=== PATIENT | female | born 1985 | race Caucasian/White ===

== ENCOUNTER 2020-04-11 15:20 | Observation (INO) | payer OTHER, SELFPAY ==
--- NOTE | ~2020-04-11 | US_ITS ---
EXAMINATION: US OB follow up DATE: 04/11/2020 15:30 INDICATION: Routine care. Estimated gestational age of 39 weeks and 6 days. TECHNIQUE: Real-time ultrasound of the pelvis was performed. COMPARISON: None. FINDINGS: There is a single living fetus in vertex presentation. The placenta is fundal. heart rate is 1 33 beats per minute (bpm). The amniotic fluid index is 15.7 cm, which is normal. The following biometric data were obtained: Biparietal diameter (BPD): 9.0 cm; head circumference (HC): 31.9 cm; abdominal circumference (AC): 31 .4 cm; femur length (FL): 7.0 cm. These measurements are concordant. Estimated weight is 2731 g +/- 410 g, which correlates with <3rd percentile when 04/12/20 is us ed as estimated date of delivery. As single measurements, these parameters are each equal to the following estimated gestational ages: BPD: 36 weeks 3 days. HC: 36 weeks 0 days. AC: 35 weeks 2 days. FL: 35 weeks 5 days. estimated gestational age based solely on measurements from this exam is 35 weeks 6 days +/- 2 weeks 4 days. IMPRESSION: 1. Single living fetus in vertex presentation. 2. Small for gestational age. Estimated weight is 2731 g +/- 410 g, which correlates with <3rd percentile when 04/12/20 is used as estimated date of delivery. Reviewed, dictated and finalized at location A. IMPRESSION: 1. Single living fetus in vertex presentation. 2. Small for gestational age. Estimated weight is 2731 g +/- 410 g, whic h correlates with <3rd percentile when 04/12/20 is used as estimated date of de livery.
[2020-04-11 17:36] LABS: Basophils Percent Auto 0.3 % (0.2-1.2); Eosinophils Absolute Auto 0.2 K/mm3 (0-0.3); Eosinophils Percent Auto 2.5 % (0-4.4); Hematocrit 32.7 % (37.0-47.0); Hemoglobin 10.7 g/dL (12.0-15.0); Immature Granulocyte Absolute 0.04 K/mm3 (0.00-0.031); Immature Granulocyte Percent A 0.5 % (0-0.5); Lymphocytes Absolute Auto 2.26 K/mm3 (0.9-3.2); Lymphocytes Percent Auto 25.8 % (18.3-44.2); Mean Corpuscular HGB Conc 32.7 g/dl (32-36); Mean Corpuscular Hemoglobin 28.7 pg (26-34); Mean Corpuscular Volume 87.7 fl (80-100); Mean Platelet Volume 11.9 fl (7.4-10.4); Monocytes Absolute Auto 0.6 K/mm3 (0.1-0.6); Monocytes Percent Auto 6.5 % (2.6-8.5); Neutrophils Absolute Auto 5.6 K/mm3 (1.3-6.7); Neutrophils Percent Auto 64.4 % (45.5-73.1); Platelet Count Result 217 k/mm3 (150-375); Red Blood Count 3.73 M/mm3 (4.2-5.4); Red Cell Distribution Width 13.1 % (11.5-14.5); White Blood Count 8.8 K/mm3 (4.5-10.0)
--- NOTE | 2020-04-11 17:59 | OBADM ---
This patient, Rosi Hernández, admitted to the OB room Labor/Delivery/Recovery 119 for observation. Patient/family oriented to hospital policies and general routines including ID bracelet, bed and alarms, visiting hours, pain management, procedures, bathroom and other care routines, personal items, smoking policy, room service/diet, and visiting hours. Patient/Family are encouraged to report perceived risks to care and to ask questions if they do not understand what they are told or what they should do.
--- NOTE | 2020-04-11 18:21 | PC.NURSE ---
4835- on the unit, reviewed strip. Orders received to draw pre-op labs. Informed SVE is closed and thick.
--- NOTE | 2020-04-11 18:50 | PM.OBTRLD ---
OB - Triage/Final Diagnosis Visit Information Reason for evaluation: threatened labor Evaluation Baseline heart rate: 144 Variability: Average (6-10) monitor accelerations: Present monitor decelerations: None Cervical dilation (cm): 0 Cervical effacement (%): 50 station: -3 Laboratory results: Laboratory Tests 04/11/20 04/11/20 17:28 17:28 WBC 8.8 RBC 3.73 L Hgb 10.7 L Hct 32.7 L MCV 87.7 MCH 28.7 MCHC 32.7 RDW 13.1 Plt Count 217 MPV 11.9 H Immature Gran % (Auto) 0.5 Neut % (Auto) 64.4 Lymph % (Auto) 25.8 Walton % (Auto) 6.5 Eos % (Auto) 2.5 Baso % (Auto) 0.3 Lymph # (Auto) 2.26 Walton # (Auto) 0.6 Eos # (Auto) 0.2 Baso # (Auto) 0.0 Abs Immat Gran (auto) 0.04 H Absolute Neuts (auto) 5.6 Absolute Nucleated RBC 0.0 Nucleated RBC % 0.0 Blood Type O Positive Antibody Screen Negative Final Diagnosis (1) False labor: Code(s): O47.9 - False labor, unspecified Status: Acute (2) Delivery by section: Status: Acute (3) Term : Code(s): Z34.90 - Encounter for supervision of normal , unspecified, unspecified trimester Status: Acute
[2020-04-12 11:16] LABS: Rapid Plasma Reagin Non-Reactive (NonReactive)
== END 2020-04-11 17:22 | disposition home or self-care (01) ==
LOC: ANHLDR 17:06
PROVIDERS: Admitting Provider Obstetrics & Gynecology; Visit Provider Obstetrics & Gynecology
DX: O47.03 False labor before 37 completed weeks of gestation, third trimester (principal); Z3A.38 38 weeks gestation of pregnancy
CPT/HCPCS: 36415; 76816; 85025; 86592; 86850; 86900; 86901; G0378; G0379

== ENCOUNTER 2020-04-13 05:46 | Inpatient (IN) | payer OTHER, SELFPAY ==
--- NOTE | 2020-04-11 16:13 | WPDANESEPPF ---
Anes - Initial Pre Proc Eval Procedure: Operation Date: 04/13/20 10:30 Proposed Procedures p Repeat Low Transverse Section - Oscar Gil MD Date/Time: 04/11/20 16:13 Surgeon: Oscar Gil MD Pre Op Diagnosis: LABOR Patient Data Age: 34 Gender: F Height: Weight: Allergies Allergy/AdvReac Type Severity Reaction Status Date / Time No Known Allergies Allergy Verified 06/02/19 09:12 Home Medications Medication Instructions Recorded Confirmed Type PNV cmb#95-ferrous fumarate-FA 1 tablet PO DAILY 03/19/20 03/19/20 History [] levalbuterol tartrate 2 inh INHALATION Q6H 03/19/20 03/19/20 History Patient hx anesthesia problems: none Family hx anesthesia problems: none PMFSH Past Medical History Medical History (Updated 04/11/20 @ 16:14 by Jamaal Lee MD) No significant past medical history Surgical History Surgical History (Updated 04/11/20 @ 16:14 by Jamaal Lee MD) History of section No significant past surgical history Family History Family History Mother Hypertension Social History Social History Smoking status: Never smoker Substance use: never Gender identity (if verbalized by the patient): Female Spiritual care concerns: No Anes - Eval Final PreProcedure Day of Procedure 04/11/20 16:13 Patient weight: normal Heart: regular rate and rhythm Lungs: clear to auscultation Airway: Mallampati scale class II Neurological: alert and oriented Last oral intake: >/= 8 hours ASA classification: II Emergent: no Anesthetic plan: proceed Anesthesia type and monitoring: regional spinal and standard monitoring Informed Consent: The patient's anesthetic plan and its attendant risks and benefits were discussed with the patient/family/POA. Questions were solicited and answers provided to the satisfaction of the patient/family/POA.
--- NOTE | 2020-04-12 18:44 | PM.IMHP ---
H&P: HPI History of Present Illness Date/Time: 04/13/20 06:44 Chief complaint: LABOR Narrative: Rosi Hernández is a 34 year old female, , presents today for Repeat c section at 39weeks . PMHx of deliveries, miscarriage, LEVON, asthma, HSV, MTHFR. Review of Systems Review of Systems: All systems reviewed & are unremarkable except as noted in HPI and below Constitutional: Constitutional: Reports no additional constitutional complaints Eyes: Eyes: Reports no additional eye complaints ENT: Reports system reviewed and no additional complaints, except as documented Cardiovascular: Cardiovascular: Reports no additional cardiovascular complaints Respiratory: Respiratory: Reports no additional respiratory complaints Gastrointestinal: Gastrointestinal: Reports no additional gastrointestinal complaints Genitourinary: Genitourinary: Reports no additional female genitourinary complaints Musculoskeletal: Musculoskeletal: Reports no additional musculoskeletal complaints Integumentary/Breasts: Skin/Breast: Reports system reviewed and no additional complaints, except as docu Neurologic: Reports system reviewed and no additional complaints, except as documented Psychiatric: Psychiatric: Reports no additional psychiatric complaints Endocrine: Endocrine: Reports no additional endocrine complaints Hematologic/Lymphatic: Hematologic/Lymphatic: Reports no additional hematologic/lymphatic complaints Allergic/Immunologic: Allergic/Immunologic: Reports no additional allergic/immunologic complaints [facility] Past Medical History Medical History Asthma LEVON (generalized anxiety disorder) 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 History of miscarriage HSV (herpes simplex virus) infection No significant past medical history Surgical History Surgical History Delivery by section History of section No significant past surgical history Family History Family History Mother Hypertension Social History Social History Smoking status: Never smoker Second hand tobacco smoke exposure: No Alcohol intake: never Substance use: never Substance use type: does not use Living arrangements: with family Occupation/Education: unemployed Gender identity (if verbalized by the patient): Female Sexual Orientation (if Verbalized by the Patient): Straight or Heterosexual Spiritual care concerns: No Agree to blood products: Yes Meds Home Medications and Allergies Home Medications Medication Instructions Recorded Confirmed Type PNV cmb#95-ferrous fumarate-FA 1 tablet PO DAILY 03/19/20 03/19/20 History [] levalbuterol tartrate 2 inh INHALATION Q6H 03/19/20 03/19/20 History Allergies Allergy/AdvReac Type Severity Reaction Status Date / Time No Known Allergies Allergy Verified 06/02/19 09:12 Exam Const: General: cooperative, healthy appearing, comfortable, no acute distress, well developed, alert, awake and Physically active Nutritional Appearance: average body habitus and well nourished Orientation/consciousness: patient oriented x3 Limitations: no limitations HENMT: Head: normal to inspection Ears: hearing grossly normal bilaterally General nose exam: Normal external nose present and Normal nares present Face and sinus: normal facial exam Mouth: Yes Normal oral and palatal mucosa present, Yes lip normal, Yes tongue normal, Yes Normal salivary glands and ducts present, Yes oropharynx normal and Yes moist mucous membranes Teeth and gingiva: dentition normal Throat: posterior oropharynx normal Eyes: General: appearance normal, both eyes and all related structures Visual Valenzuela: normal visual valenzuela by confrontation Alignment and Position: alignm
--- NOTE | 2020-04-12 19:17 | WPDHPUPDATE1 ---
History and Physical Update Update Date/Time: 04/13/20 06:17 History and Physical has been reviewed, including an updated exam of the patient. There are NO changes in the patient's condition. Risks, benefits, and alternatives have been discussed and questions answered. Patient agrees to proceed with procedure. 34yo F, , presents today for Repeat LTCS at 39w. PMHx of deliveries, miscarriage, LEVON, asthma, HSV, MTHFR.
--- NOTE | 2020-04-12 19:19 | WPDOBADMIT ---
Obstetrics - Admit Note Admission Note: record reviewed. No pertinent additions to the history and/or any subsequent changes in the physical findings that are not consistent with the expected course of the were found. Additions to the history and/or subsequent changes in the physical findings follow. N34yo F, , presents today for Repeat LTCS at 39weeks. PMHx of deliveries, miscarriage, LEVON, asthma, HSV, MTHFR.one.
[2020-04-13] VITALS (66 sets, daily range): BP systolic 93–125; BP diastolic 49–84; PULSE 51–104; RESP 12–18; TEMP 36.1–37; O2SAT 96–100; BMI 31.4
--- OUTSIDE RECORDS SUMMARY | 2020-04-13 05:52 | XMS_ITS | Encounter Summary ---
:1985 Author Care Team Providers Name Role Phone Oscar Gil MD Elevated Motorman [phone] Reason for Visit ob routine visit Assessment and Plan 1. Routine care ? urinalysis, dipstick 2. 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 cyanocobalamin (vit B-12) 1,000 mcg/mL injection solution 3. Deliveries by Team discussed with patient on her actual due date of 04/19/2020. Patient stated her discrepancies. Discussion Note: None recorded.Patient educational handouts: No information available. Plan of Care Reminders Provider Appointments on or around [place] alfreda Gil, 15 05/02/2020 Lab Urinalysis, 02/15/2020 In-Of fice Order Dipstick Referral None ? ? recorded. Procedures None ? ? recorded. Surgeries None ? ? recorded. Imaging None ? ? recorded. Medications Name Start Date ? ? acyclovir 800 mg tablet ? Take 1 tablet every day by oral route. One pill a day keeps the virus away albuterol sulfate HFA 90 mcg/actuation aerosol inhaler ? Inhale 2 puffs every 4 hours by inhalation route as n eeded. Aspirin Low Dose 81 mg tablet,delayed release ? Take 1 tablet twice a day by oral route. Calcium 600 with Vitamin D3 600 mg
--- OUTSIDE RECORDS SUMMARY | 2020-04-13 05:52 | XMS_ITS | Encounter Summary ---
:1985 Author Care Team Providers Name Role Phone Oscar Gil MD Milk Wagon Driver [phone] Reason for Visit ob routine visit been having multiple times where she has loss of consciousness and claims that it has happened 3 times this past month. been also extremely dizzy as well Assessment and Plan 1. Routine care ? urinalysis, dipstick ? US, obstetric, [address] [place] [address] er - STAT 2. Deliveries by Team discussed with patient on her actual due date of 04/19/2020. Patient stated her discrepancies. 3. Generalized anxiety disorder ? anxiety disorder: care ins tructions 4. 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 Genital herpes simplex ? genital herpes: care instr uctions Discussion Note: None recorded. Plan of Care Reminders Provider Appointments on or around Gina Gil, 15 05/02/2020 Lab Urinalysis, 04/11/2020 In-Of fice Order Dipstick Referral None ? ? recorded. Procedures None ? ? recorded. Surgeries None ? ? recorded. Imaging US, 04/11/2020 [facility], [address] [place] [address] (Priya hines) Trimester Medications Name Start Date ? ?
--- OUTSIDE RECORDS SUMMARY | 2020-04-13 05:52 | XMS_ITS | Encounter Summary ---
:1985 Author Care Team Providers Name Role Phone Oscar Gil MD Railway Switch Operator [phone] Reason for Visit ob routine visit Assessment and Plan 1. Routine care VIRGIL at 33 weeks 4 days. Pregna ncy c/b deliveries, LEVON, asthma, HSV, MTHFR. Pt endorses irregular contra ctions and movement, denies LOF. Reassuring fundal height and FHT present at 156. US 02/14 with EFW 22% and RM wnl. RTC in 2 weeks. ? urinalysis, dipstick 2. 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 Counseled pt on results. Start ASA and folic acid as prescribed. Last B 12 injection given 02/14. 3. Deliveries by Plan for repeat , jessica eduled 04/13. 4. Generalized anxiety disorder Excessive worry over emergenc y possibility. Reassurance. Recommend counseling. Discussion Note: None recorded.Patient educational handouts: No information available. Plan of Care Reminders Provider Appointments on or around Gina Gil, 15 05/02/2020 Lab Urinalysis, 03/05/2020 In-Of fice Order Dipstick Referral None ? ? recorded. Procedures None ? ? recorded. Surgeries None ? ? recorded. Imaging None ? ? recorded. Medications Name
--- OUTSIDE RECORDS SUMMARY | 2020-04-13 05:52 | XMS_ITS ---
:1985 Author Care Team Providers Name Role Phone SAADIA SCHULTE MD Candy Cooker Helper [phone] Allergies Code Code System Name Reaction Severity Status Onset NKDA ? Medications Name Status Start Date Stop Date ? ? acyclovir 800 mg tablet Active ? Not avai lable Take 1 tablet every day by oral route. One pill a day keeps the virus away Advair Diskus 250 mcg-50 mcg/dose powder for inhalation Complete d ? 02/03/2020 Inhale 2 puffs twice a day by inhalation route. albuterol sulfate HFA 90 mcg/actuation Active ? Not available aerosol inhaler Aspirin Low Dose 81 mg tablet,delayed release Active ? Not available Take 1 tablet twice a day by oral route. Calcium 600 with Vitamin D3 600 mg (1,500 mg)-400 unit capsule A ctive ? Not available Take 1 capsule twice a day by oral route. cephalexin 500 mg capsule Completed ? 2019 cetirizine 10 mg tablet Active ? Not avai lable Take 1 tablet every day by oral route. cyanocobalamin (vit B-12) 1,000 mcg/mL injection solution Active ? Not available Inject 1 mL every month by subcutaneous route. diazepam 10 mg tablet Completed ? 03/05/2020 Flovent HFA 44 mcg/actuation aerosol Active ? Not available inhaler fluconazole 150 mg tablet Completed ? 2019 folic acid 1 mg tablet Active ? Not avail able Take 2 tablets twice a day by oral route. ibuprofen 600 mg tablet Completed ? 03/05/20 20 ibuprofen 800 mg tablet Completed ? 03/05/20 20 metronidazole 500 mg tablet Compl
--- OUTSIDE RECORDS SUMMARY | 2020-04-13 05:52 | XMS_ITS | Encounter Summary ---
:1985 Author Care Team Providers Name Role Phone Oscar Gil MD Addictions Counselor [phone] Reason for Visit ob routine visit patient complaining of swelling in legs and feet Assessment and Plan 1. Routine care ? Boostrix Tdap 2.5 Lf unit- 8 mcg-5 Lf/0.5 mL intramuscular syringe ? US, obstetric, 3rd trimest er ? counting your baby's kicks : care instructions ? kick counts ? CBC - In addition to our o ffice, please fax results to [facility] at [phone] ? treponema pallidum screen, serum, reflex confirmation - In addition to our office, please fax results to [facility] at [phone] ? HBsAg (hepatitis B surface Ag), EIA, serum - In addition to our office, please fax results to [facility] at [phone] ? HIV 1+2 AB + HIV 1 p24 Ag, qualitative immunoassay, serum - In addition to our office, please fax results to [facility] at [phone] ? urinalysis, dipstick 2. screening ? glucose tolerance test, po st-50G, 1-hour - In addition to our office, please fax results to [facility] at [phone] 3. Deliveries by 4. History of miscarriage 5. 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 cyanocobalamin (vit B-12) 1,000 mcg/mL injection solution Discussion Not
--- OUTSIDE RECORDS SUMMARY | 2020-04-13 05:52 | XMS_ITS | Encounter Summary ---
:1985 Author Care Team Providers Name Role Phone Oscar Gil MD Talent Acquisition Project Manager [phone] Reason for Visit ob routine visit Assessment and Plan 1. Routine care ? urinalysis, dipstick ? Zithromax Z-Cal 250 mg tab let ? Singulair 10 mg tablet ? Advair Diskus 250 mcg-50 m cg/dose powder for inhalation ? cetirizine 10 mg tablet 2. screening 3. Genital herpes simplex ? genital herpes: care instr uctions 4. 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 Third trimester ? US, obstetric, 3rd trimest er 6. Asthma ? controlling your asthma: c are instructions ? learning about asthma Discussion Note: None recorded. Plan of Care Reminders Provider Appointments on or around [place] alfreda Gil MD 15 05/02/2020 Lab Urinalysis, 02/02/2020 In-Of fice Order Dipstick Referral None ? ? recorded. Procedures None ? ? recorded. Surgeries None ? ? recorded. Imaging US, 02/02/2020 [facility] Trimester Medications
[2020-04-13] MEDS: LACTATED RINGERS 1,000 ML 125 ML IV CONT ×2 (06:31→08:15)
--- NOTE | 2020-04-13 06:47 | ECG_ITS ---
Measurements Intervals [place] Rate: 84 P: 62 SD: 118 QRS: 45 QRSD: 70 T: 35 QT: 422 QTc: 500 Interpretive Statements SINUS RHYTHM WITH SHORT SD INTERVAL BASELINE WANDER- V3 BORDERLINE ECG Electronically Signed On 04-13-2020 7:07:19 CDT by Onesimo Birch D.O.
--- NOTE | 2020-04-13 07:06 | P.PCNOB_ITS ---
OB - Delivery Note Procedure Delivery date: 04/13/20 Procedure: Procedures Operation Date: 04/13/20 07:30 repeat low-transverse section with delivery of viable male and placenta removal of old scar with Kenalog injection to prevent keloid formation events: Previous Induction method: none Delivery monitor: external FHT and external uterine Route of delivery: Episiotomy description: None Laceration Description: None Specimen: Yes ( placenta, cord blood, cord blood gases) Estimated blood loss (mL): 310 Anesthesia type: Spinal Disposition: floor Complications: none Baby Date of : 04/13/20 Time of : 07:53 Weeks of gestation at delivery: 39 Infant gender: Male ( ) Weight (pounds): 7 Weight (ounces): 0 presentation: vertex position: Left Occiput Transverse Placenta delivery description: Manual Removal and Normal Configuration cord vessel description: 3 Vessels score one minute: 8 score five minutes: 9 Narrative: baby's name is Cristobal mom is baby will be circumcised certified professional coder [facility]
--- NOTE | 2020-04-13 07:07 | PM.PROC ---
Procedure Note - Detailed Date of procedure: 04/13/20 Pre-op diagnosis: Section term Previous section desires repeat section Asthma Heterozygous MTHFR mutation HSV Generalized anxiety disorder Post-op diagnosis: same ( delivered viable male and placenta) Procedure performed: repeat low transverse section with delivery of viable male infant and placenta Excision of old scar injection of Kenalog to prevent keloid formation Description of procedure: informed consent obtained preop evaluation by Anesthesia completed patient taken to the operating room where spinal anesthetic was administered in the sitting position the patient was placed supine and a Hightower catheter was inserted and then her abdomen was prepped and then draped in the usual sterile fashion. A time-out was then performed and testing for adequate pain relief was confirmed with Allis clamp The old scar was excised using sharp blade and then electrocautery used to remove old scar tissue and hemostasis in the subcutaneous tissues the fascia was entered with electrocautery bilaterally and then undermined superior and inferior. The rectus muscles were in the midline and the peritoneum was entered with electrocautery. The vesicouterine peritoneal reflection was incised transversely and the bladder reflected inferior. A transverse incision was then made to the uterus and extended bilaterally with Peon clamp and digital dissection clear fluid was obtained. The vertex was then delivered via the abdominal incision with the nose throat bulb suction the cord was clamped and cut the was handed to the nursery nurse in attendance spontaneous respirations and cry normal transition taken to the nursery in stable condition scores 8 and 9 weight 7 lb 0 oz 19-1/2 inches long. Cord segment for cord gases was obtained cord blood was obtained and then the placenta was delivered intact with a three-vessel cord the uterus was externalized blood clots membranes removed from the intrauterine cavity the uterus contracted well with Pitocin given intravenously and 10 units into the myometrium. The uterine incision was then repaired in 2 layers with 0 Vicryl in a running interlocking fashion the 2nd being an imbricating stitch in a running fashion. Irrigation was performed uterus was returned to the peritoneal cavity sponge needle instrument counts correct the anterior peritoneum was anterior peritoneum and rectus muscles were reapproximated with 0 Vicryl suture in a running fashion. The fascia was then closed with 2. Quill in which is the S RS system bilaterally and then the Elaine's fascia was freed up using electric cautery and Elaine's fascia was then reapproximated with 3 0 plain interrupted fashion. The Kenalog injection was then placed into the subcutaneous space anterior and inferior incision. The insorb system which is the absorbable dian under the skin was utilized following this Dermaflex was used on the skin and then Mepilex Aquacel dressing was placed over the incision. The patient was taken to the recovery room in stable condition Anesthesia: spinal Surgeon: Oscar Gil MD Card Services Specialist: surgical aide x2 Estimated blood loss (mL): 310 IV fluids (mL): 2,000 Urine output (mL): 200 Drains: No ( Hightower) Packing: No Pathology: yes ( cord blood gases cord blood and placenta) Complications: None Condition: stable Disposition: floor Findings: viable male delivered at 7:53 a.m. named Cristobal with spontaneous respirations and cry no observed abnormalities on the exam taken to the nursery in stable condition scores 8 and 9 at 1 and 5 minutes weighing 7 lb 0 oz 3180 g 19-1/2 inches long Placenta intact three-vessel cord uterus tubes ovaries normal Bladder normal Upper abdomen normal Counts correct Complications none OR 2. Antibiotic Ancef 2 g VTE prevention SCDs Taken to recover room in stable co
--- NOTE | 2020-04-13 07:17 | WPDANESEFPP ---
Anes - Eval Final PreProcedure Day of Procedure 04/13/20 07:17 Patient weight: obese Heart: regular rate and rhythm (few missed beats palpated and ascultated - EKG ordered) Lungs: clear to auscultation (no wheezes or abnormalities ascultated in all lung valenzuela A and P) Airway: Mallampati scale class II Neurological: alert and oriented Last oral intake: >/= 8 hours ASA classification: II Emergent: no Anesthetic plan: proceed Anesthesia type and monitoring: regional spinal and standard monitoring Other findings: EKG NSR with short MT Informed Consent: The patient's anesthetic plan discussed at length including absolutely no blood to be given even if is possible. This discussion witnessed by RN and family. Attendant risks and benefits were discussed with the patient/family/POA. Questions were solicited and answers provided to the satisfaction of the patient/family/POA.
[2020-04-13] MEDS: ceFAZolin 2 GM/D5W 50 ML 2 GM/50 ML BAG IVPB (07:40)
[2020-04-13] MEDS: OXYTOCIN 10 UNITS/ML VIAL IM (07:55)
[2020-04-13] MEDS: TRIAMCINOLONE ACET INJ 40 MG/ML VIAL 160 MG IM (08:57)
[2020-04-13] MEDS: fentaNYL CITRATE INJ (*CRX) 100 MCG/2 ML VIAL 25 MCG IV PUSH ×3 (09:23→09:47)
[2020-04-13] MEDS: KETOROLAC 30 MG/ML VIAL (*BKC) IV PUSH ×3 (10:05→22:30)
[2020-04-13] MEDS: OXYTOCIN 30 UNITS/NS 500 ML 30 UNITS/500 ML BAG 125 UNITS IV CONT (11:04)
[2020-04-13] MEDS: HYDROcodone/acetaminophen (*CRX) 10-325 MG TABLET 1 TAB PO ×4 (12:40→23:50)
--- NOTE | 2020-04-13 14:45 | PC.NURSE ---
Mother called out for observation of feeding, mother breastfed other children now 12 & 14. Mother reports infant is sleepy. Demonstrated stimulation techniques to wake for feeding. Reviewed infant feeding cues, frequencies, duration of feedings, feeding elimination flow sheet, and signs of adequate intake. Assisted with to breast. Observed mother is able to independently latch infant with appropriate positioning/alignment. Reviewed positioning/alignment in cross cradle, holding breast in U hold and guided asymmetrical latch on. Discussed the rational for each. was able to latch correctly. Infant nursed eagerly, with steady draws and [frequent/occasional] swallowing noted. Reviewed signs of a correct latch, effective nursing and suck swallow ratio. Infant was able to maintain latch without discomfort to mother. Nipple care reviewed. Suggested to stimulate while feeding to keep nursing effectively for increased intake and to assist with maintaining deep latch. Demonstrated how to adjust latch more deeply while feeding. Instructed mother to call out for RN assistance if she is unable to latch infant for feeding or she has discomfort with nursing. Instructed feeding should be initiated three hours from start of last feeding or if feeding cues are noted before. Mother voiced understanding of information shared.
[2020-04-14 00:17] VITALS: BP 115/52; PULSE 53; PULSE 65; RESP 16; TEMP 36.3; O2SAT 100
--- NOTE | 2020-04-14 03:05 | PM.OBPNVD ---
OB - PN: Subj Subjective Date/time seen: 04/14/20 08:05 postop day 1. 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 - Methylenetetrahydrofolate reductase deficiency Status: Acute (4) History of miscarriage: Code(s): Z87.59 - Personal history of other complications of , childbirth and the puerperium Status: Acute (5) HSV (herpes simplex virus) infection: Code(s): B00.9 - Herpesviral infection, unspecified Status: Acute (6) Asthma: Code(s): J45.909 - Unspecified asthma, uncomplicated Status: Acute (7) LEVON (generalized anxiety disorder): Code(s): F41.1 - Generalized anxiety disorder Status: Acute Time Spent With Patient Time: Total time spent is greater than 50% in coordination of care (as documented) at patient's floor/unit and/or counseling patient: Review of Systems Review of Systems: All systems reviewed & are unremarkable except as noted in HPI and below Constitutional: Constitutional: Reports no additional constitutional complaints Eyes: Eyes: Reports no additional eye complaints ENT: Reports system reviewed and no additional complaints, except as documented Cardiovascular: Cardiovascular: Reports no additional cardiovascular complaints Respiratory: Respiratory: Reports no additional respiratory complaints Gastrointestinal: Gastrointestinal: Reports no additional gastrointestinal complaints Genitourinary: Genitourinary: Reports no additional female genitourinary complaints Musculoskeletal: Musculoskeletal: Reports no additional musculoskeletal complaints Integumentary/Breasts: Skin/Breast: Reports system reviewed and no additional complaints, except as docu Neurologic: Reports system reviewed and no additional complaints, except as documented Psychiatric: Psychiatric: Reports no additional psychiatric complaints Endocrine: Endocrine: Reports no additional endocrine complaints Hematologic/Lymphatic: Hematologic/Lymphatic: Reports no additional hematologic/lymphatic complaints Allergic/Immunologic: Allergic/Immunologic: Reports no additional allergic/immunologic complaints Exam Const: General: cooperative, healthy appearing, comfortable, no acute distress, well developed, alert, awake and Physically active Nutritional Appearance: average body habitus Orientation/consciousness: patient oriented x3 Limitations: no limitations HENMT: Head: normal to inspection Eyes: General: appearance normal, both eyes and all related structures Neck: Neck: normal visual inspection and full ROM Chest: Chest palpation & inspection: normal inspection of the chest Breast/axilla inspection: normal inspection of the breasts Breast/axilla palpation: normal palpation of the breasts Resp: Effort & Inspection: normal respiratory effort Auscultation: clear to auscultation bilaterally Cardio: Rate: regular rate Rhythm: regular rhythm Heart sounds: S1 normal heart sound present and S2 normal heart sound present GI: Inspection: normal to inspection and incision ( clean dry and intact) GI Palp: Yes Soft to palpation Percussion: Yes normal to percussion Auscultation: normal bowel sounds : External Female Exam: normal external appearance Urinary Catheter: Urinary Catheter: patent and draining and urine clear Back/Spine/Pelvis: Back: no CVA tenderness Skin: General skin exam: normal color and no rashes or lesions noted Neuro: General: patient oriented x3, gait normal, tone normal, moves all extremities, Normal light touch and pain sensation, no meningeal signs, no focal motor deficits and CN's II-XI intact bilaterally Extrem: General: normal to inspection and full ROM Psych: Appearance: grossly normal Mental Status: mental stat
[2020-04-14 04:00] VITALS: BP 115/70; PULSE 58; RESP 16; TEMP 36.7; O2SAT 100
[2020-04-14] MEDS: IBUPROFEN 600 MG TABLET PO ×3 (04:53→19:46)
[2020-04-14] MEDS: HYDROcodone/acetaminophen (*CRX) 10-325 MG TABLET 1 TAB PO ×5 (04:53→19:45)
--- NOTE | 2020-04-14 05:31 | PC.NURSE ---
Pt refused blood draw this morning.
[2020-04-14 07:38] VITALS: BP 109/63; PULSE 53; RESP 16; TEMP 36.7; O2SAT 100
[2020-04-14] MEDS: MULTIVIT/MIN/PREN/FOL AC/IRON TABLET 1 TAB PO (07:40)
[2020-04-14] MEDS: DOCUSATE SODIUM 100 MG CAPSULE PO ×2 (07:41→16:25)
--- NOTE | 2020-04-14 09:45 | WPDANLDNPN2 ---
Anes-Prog Note L&D-Neuraxial Date/Time: 04/14/20 09:45 Neuraxial medications: intrathecal PF morphine Opiod-related complaints: none Patient feedback: Patient satisfied with post-operative pain management.
--- NOTE | 2020-04-14 09:45 | WPDANLDPN2 ---
Anes-Prog Note L&D Date/Time: 04/14/20 09:45 Comfortable throughout: section Neuraxial method: spinal Epidural/Spinal procedure site: clean & non-tender Neuro status: Neuro function grossly intact. Cardiovascular status: normal Respiratory status: normal Airway patency: baseline Mental status: baseline Post-Op hydration status: normal Vital Signs: Last Vital Signs Temp 36.7 C 04/14/20 07:38 Pulse 53 L 04/14/20 07:38 Resp 16 04/14/20 07:38 BP 109/63 04/14/20 07:38 Pulse Ox 100 04/14/20 07:38 Pain score (VAS): 0/0 I/O: Intake & Output 04/13/20 04/14/20 04/14/20 23:59 07:59 15:59 Intake Total 3000 Output Total 2500 Balance 500 Post-procedural complaints: none Patient feedback: Patient satisfied with anesthetic care.
[2020-04-14 19:00] VITALS: BP 110/57; PULSE 52; RESP 14; TEMP 36.7; O2SAT 99
[2020-04-15] MEDS: HYDROcodone/acetaminophen (*CRX) 10-325 MG TABLET 1 TAB PO ×5 (00:57→14:21)
--- NOTE | 2020-04-15 01:09 | PC.NURSE ---
Daylight Savings Time For Daylight Savings Time Ending in the Fall - Clocks are moved back. For Daylight Savings Time Beginning in the Spring - Clocks are moved ahead. For [facility], the time of change occurs at 0200 hrs. Time is taken from the electrical prospecting observer. This entry on the patient's chart recognizes the change in time reflected during documentation. Example: 2 entries for vital signs may be charted for 0200 hrs.
[2020-04-15] MEDS: IBUPROFEN 600 MG TABLET PO ×2 (04:18→10:51)
--- NOTE | 2020-04-15 04:36 | PM.OBDSVD ---
DS: Admitting Diagnosis Admitting Diagnosis Admitting Diagnosis: term previous section desires repeat Section asthma Generalized anxiety disorder Heterozygous MTHFR mutation HSV History of miscarriage DS: Discharge Diagnosis Discharge Diagnosis (1) Term delivered: Code(s): O80 - Encounter for full-term uncomplicated delivery Status: Acute (2) Delivery by section: Status: Acute (3) Heterozygous MTHFR mutation [id number]: Code(s): E72.12 - Methylenetetrahydrofolate reductase deficiency Status: Acute (4) HSV (herpes simplex virus) infection: Code(s): B00.9 - Herpesviral infection, unspecified Status: Acute (5) Asthma: Code(s): J45.909 - Unspecified asthma, uncomplicated Status: Acute (6) LEVON (generalized anxiety disorder): Code(s): F41.1 - Generalized anxiety disorder Status: Acute OB - DS: Summary Hospital Course Time spent discussing smoking cessation with patient: 3 to 10 minutes OB Procedures : Ultrasound OB Procedures Intrapartum: ( repeat) low cervical, transverse OB Procedures: : None Peripartum Data Infant Delivery Method: Section ( repeat low transverse) Laceration description: None Episiotomy description: None Procedures: Procedures Operation Date: 04/13/20 07:30 repeat low transverse section with delivery of viable male infant and placenta Excision of old scar with placement of Kenalog to prevent keloid formation in scar complications: none [place] 1: Gender: Male (Cristobal) Disposition of : home ( circumcision performed) Status at Discharge Functional status at discharge: independent ambulation Overall status at discharge: patient is back to baseline Time Spent with Patient Time attestation: Total time spent providing and/or coordinating discharge services: Time spent: Less than 30 minutes Exam Const: General: cooperative, healthy appearing, comfortable, no acute distress, well developed, alert, awake and Physically active Nutritional Appearance: average body habitus and well nourished Orientation/consciousness: oriented to person Limitations: no limitations HENMT: Head: normal to inspection Ears: hearing grossly normal bilaterally General nose exam: Normal external nose present Face and sinus: normal facial exam Mouth: Yes Normal oral and palatal mucosa present Teeth and gingiva: dentition normal Throat: posterior oropharynx normal Eyes: General: appearance normal, both eyes and all related structures Pupils: Equal, round and reactive pupils present Neck: Neck: normal visual inspection and full ROM Chest: Chest palpation & inspection: normal inspection of the chest Breast/axilla inspection: normal inspection of the breasts Breast/axilla palpation: normal palpation of the breasts Resp: Effort & Inspection: normal respiratory effort Auscultation: clear to auscultation bilaterally Percussion: percussion normal Cardio: Jugular venous distension: no JVD Palpation: normal PMI Rate: regular rate Rhythm: regular rhythm GI: Inspection: normal to inspection and incision ( clean dry and intact dressing) GI Palp: Yes Soft to palpation and Yes Firmness to palpation present (GI) ( uterus) Percussion: Yes normal to percussion Auscultation: normal bowel sounds : External Female Exam: normal external appearance Back/Spine/Pelvis: Back: no CVA tenderness Skin: General skin exam: normal color and no rashes or lesions noted Neuro: General: patient oriented x3, gait normal, tone normal, moves all extremities, Normal light touch and pain sensation, no meningeal signs and CN's II-XI intact bilaterally Cognition (Neuro): normal cognition Speech: normal speech Gait exam (Neuro): Normal gait present Motor exam (neuro): 5/5 motor strength present throughout Sensory Exam: normal sensation Extrem: General
[2020-04-15 07:43] VITALS: BP 113/57; PULSE 53; RESP 16; TEMP 36.7; O2SAT 98
[2020-04-15] MEDS: MULTIVIT/MIN/PREN/FOL AC/IRON TABLET 1 TAB PO (07:43)
[2020-04-15] MEDS: SIMETHICONE 80 MG TAB.CHEW PO (07:43)
[2020-04-15] MEDS: DOCUSATE SODIUM 100 MG CAPSULE PO (07:43)
--- NOTE | 2020-04-15 08:55 | P.PNOB_ITS ---
OB - PN: Subj Subjective Date/time seen: 04/15/20 08:55 Interval history: pod#2 Patient comments: no complaints, pain well controlled, incisional pain, tolerating diet and flatus present [place] baby status: doing well [place] feeding status: exclusively breast feeding OB - PN A/P Assessment and Plan (1) Term delivered: Code(s): O80 - Encounter for full-term uncomplicated delivery Status: Acute (2) Heterozygous MTHFR mutation [id number]: Code(s): E72.12 - Methylenetetrahydrofolate reductase deficiency Status: Acute (3) HSV (herpes simplex virus) infection: Code(s): B00.9 - Herpesviral infection, unspecified Status: Acute (4) Asthma: Code(s): J45.909 - Unspecified asthma, uncomplicated Status: Acute (5) LEVON (generalized anxiety disorder): Code(s): F41.1 - Generalized anxiety disorder Status: Acute (6) Delivery by section: Status: Acute Time Spent With Patient Time: Total time spent is greater than 50% in coordination of care (as documented) at patient's floor/unit and/or counseling patient: Review of Systems Review of Systems: All systems reviewed & are unremarkable except as noted in HPI and below Exam Const: General: cooperative, healthy appearing, comfortable, no acute distress, well developed, alert, awake and Physically active Nutritional Appearance: average body habitus Limitations: no limitations HENMT: Head: normal to inspection Eyes: General: appearance normal, both eyes and all related structures Neck: Neck: normal visual inspection and full ROM Chest: Chest palpation & inspection: normal inspection of the chest Breast/axilla inspection: normal inspection of the breasts Resp: Effort & Inspection: normal respiratory effort Auscultation: clear to auscultation bilaterally Cardio: Rate: regular rate Rhythm: regular rhythm GI: Inspection: normal to inspection and incision (DDI) GI Palp: Yes Soft to palpation Percussion: Yes normal to percussion Auscultation: normal bowel sounds : External Female Exam: normal external appearance Back/Spine/Pelvis: Back: no CVA tenderness Skin: General skin exam: normal color and no rashes or lesions noted Neuro: General: patient oriented x3, gait normal, tone normal and moves all extremities Extrem: General: normal to inspection and full ROM Psych: Appearance: grossly normal Mental Status: mental status grossly normal Speech and movement: Normal speech and movement present Affect: n ormal affect Attitude: cooperative Thought process: Normal thought process present Thought content: Yes Normal thought content present Insight: Good insight present (Psych) Judgement: Good judgement present (Psych)
--- NOTE | 2020-04-15 11:07 | PC.NURSE ---
Patient viewed the discharge video Mother & Baby Care, The First Two Weeks . Patient was given the opportunity and encouraged to ask questions. Patient verbalized understanding of information shared and has been given the mother/baby guide for home reference.
== END 2020-04-15 14:25 | disposition home or self-care (01) | DRG 540 ==
LOC: ANHLDR 08:54 → ANHOB2 11:13
PROVIDERS: Admitting Provider Obstetrics & Gynecology; Visit Provider Obstetrics & Gynecology
PROC: 10D00Z1 Extraction of Products of Conception, Low, Open Approach (ICD-10-PCS; CPT 59514; principal; 2020-04-13 07:30)
DX: O34.211 Maternal care for low transverse scar from previous cesarean delivery (principal); Z37.0 Single live birth; Z3A.39 39 weeks gestation of pregnancy; O99.344 Other mental disorders complicating childbirth; F41.1 Generalized anxiety disorder; O99.52 Diseases of the respiratory system complicating childbirth; J45.909 Unspecified asthma, uncomplicated; O99.284 Endocrine, nutritional and metabolic diseases complicating childbirth; E72.12 Methylenetetrahydrofolate reductase deficiency; O98.32 Other infections with a predominantly sexual mode of transmission complicating childbirth; A60.00 Herpesviral infection of urogenital system, unspecified; O99.214 Obesity complicating childbirth; E66.9 Obesity, unspecified
CPT/HCPCS: 88307; 93005; A9270; J0131; J0690; J1885; J2274; J2370; J2405; J2590; J3010; J3301; J7120

== ENCOUNTER 2020-06-10 18:57 | Emergency (ER) | payer OTHER, SELFPAY ==
[2020-06-10] VITALS (9 sets, daily range): BP systolic 113–133; BP diastolic 75–81; PULSE 64–75; RESP 16–20; TEMP 36.1–37.4; O2SAT 97–100
--- NOTE | ~2020-06-10 | CT_ITS ---
EXAMINATION: CT abdomen pelvis w con EXAM DATE: 06/10/2020 22:59 INDICATION: Incisional pain and swelling. TECHNIQUE: Spiral CT of the abdomen and pelvis was performed following intravenous injection of 100 m L Omnipaque 350. Axial, coronal and sagittal images were reviewed. The dose-length product (DLP) fo r this examination was 261.95 mGy-cm. The exposure was tailored according to patient size (auto mA e xposure control), and iterative reconstruction (ASIR) was used as additional dose reduction technique . There is no prior study for comparison. FINDINGS: The liver, spleen, adrenal glands and pancreas are unremarkable. Gallbladder is unremarkab le. No biliary obstruction. Portal and splenic veins are patent. Kidneys enhance symmetrically. T here is no hydronephrosis. The uterus is unremarkable. The bladder is unremarkable. There is no retroperitoneal or pelvic lymphadenopathy. Just deep to the lower abdominal incision there is a low-density fluid collection extending along the incision measuring 15 cm across by 3 cm AP by 5 cm craniocaudal dimensions. Probably hematoma/seroma . This could be easily aspirated if abscess were suspected clinically. There is also tiny fluid colle ction along the anterior abdominal wall measuring 5 mm in thickness by 3 cm in diameter. The appendix is normal. The stomach and small bowel are unremarkable. There is expected amount of c olonic stool. No free intraperitoneal gas. The heart is normal in size. There are no pericardial or pleural effusions. The lung bases are unremarkable. There are no osteoblastic or osteolytic les ions identified. IMPRESSION: Large contained fluid collection deep to lower abdominal incision most likely hematoma se zachariah but clinical correlation recommended. Reviewed, dictated and finalized at location B. DERETTE ATTENDANT IMPRESSION: Large contained fluid collection deep to lower abdominal incision m ost likely hematoma seroma but clinical correlation recommended.
--- NOTE | 2020-06-10 20:47 | ED.GENADULT ---
HPI - General Adult General Chief complaint: Unspecified <MICHELLE Odonnell Last Filed: 06/10/20 21:14> Stated complaint: Site Pain into back <MICHELLE Odonnell Last Filed: 06/10/20 21:14> Time Seen by Provider: 06/10/20 20:43 <MICHELLE Odonnell Last Filed: 06/10/20 21:14> Source: patient <MICHELLE Odonnell Last Filed: 06/10/20 21:14> Mode of arrival: ambulatory <MICHELLE Odonnell Last Filed: 06/10/20 21:14> Limitations: no limitations <MICHELLE Odonnell Last Filed: 06/10/20 21:14> History of Present Illness HPI narrative: Patient is here for evaluation of postoperative pain. She is 7 weeks postop from a repeat . States that she has had pain the entire time and assumed it was due to healing but approximately 5 days ago the pain worsened, her abdomen felt pride and the area along the incision was quite painful. She states that she has had fever and chills, subjective fever and some diarrhea. She has been treating her pain at home with the ibuprofen that was prescribed for her at discharge. <Hodan Jones PA-C - Last Filed: 06/10/20 21:14> Onset (ago): day(s) <Hodan Jones PA-C - Last Filed: 06/10/20 21:14> Relieving factors: none <MICHELLE Odonnell Last Filed: 06/10/20 21:14> Exacerbating factors: movement <MICHELLE Odonnell Last Filed: 06/10/20 21:14> Associated symptoms: fever/chills <MICHELLE Odonnell Last Filed: 06/10/20 21:14> Treatments prior to arrival: NSAID <MICHELLE Odonnell Last Filed: 06/10/20 21:14> Related Data Allergies/adverse reactions: Allergies Allergy/AdvReac Type Severity Reaction Status Date / Time iohexol AdvReac Chest Pain Verified 06/10/20 23:35 [From contrast - CT, X-RAY] <Hodan Jones PA-C - Last Filed: 06/10/20 21:14> [facility] Past Medical History Medical History: Medical History Asthma LEVON (generalized anxiety disorder) Heterozygous MTHFR mutation [id number] History of miscarriage HSV (herpes simplex virus) infection No significant past medical history <Hodan Jones PA-C - Last Filed: 06/10/20 21:14> Surgical History Surgical History: Surgical History Delivery by section History of section No significant past surgical history <Hodan Jones PA-C - Last Filed: 06/10/20 21:14> Family History Family History: Family History Mother Hypertension <Hodan Jones PA-C - Last Filed: 06/10/20 21:14> Social History Social History: Social History Smoking status: Never smoker Second hand tobacco smoke exposure: No Alcohol intake: never Substance use: never Substance use type: does not use Gender identity (if verbalized by the patient): Female Spiritual care concerns: No Agree to blood products: Yes <Hodan Jones PA-C - Last Filed: 06/10/20 21:14> Course TEAM TRUCK DRIVER/PA Physician Supervision I have personally seen and evaluated the patient. Patient a 34-year-old female status post with discomfort at the incision site. CT scan shows evidence of a seroma at 17 x 4.3 x 2.6 cm. I have spoken to Dr. Espinoza who recommended the patient follow-up with Dr. Gil in the clinic <Lexa Freeman MD - Last Filed: 06/10/20 23:48> Vital Signs Vital signs: Vital Signs Temperature 36.1 C L 06/10/20 18:58 Pulse Rate 75 06/10/20 18:58 Respiratory Rate 20 06/10/20 18:58 Blood Pressure 133/80 06/10/20 18:58 Pulse Oximetry 100 06/10/20 18:58 Temperature 37.4 C 06/10/20 21:18 Pulse Rate 71 06/10/20 21:18 Respiratory Rate 18 06/10/20 21:18 Blood Pressure 116/75 06/10/20 21:18 Pulse
[2020-06-10 21:32] LABS: Basophils Percent Auto 0.3 % (0.2-1.2); Eosinophils Absolute Auto 0.1 K/mm3 (0-0.3); Eosinophils Percent Auto 1.1 % (0-4.4); Hemoglobin 11.9 g/dL (12.0-15.0); Immature Granulocyte Absolute 0.02 K/mm3 (0.00-0.031); Immature Granulocyte Percent A 0.3 % (0-0.5); Lymphocytes Percent Auto 35.7 % (18.3-44.2); Mean Corpuscular HGB Conc 32.2 g/dl (32-36); Mean Corpuscular Hemoglobin 29.2 pg (26-34); Mean Corpuscular Volume 90.7 fl (80-100); Mean Platelet Volume 10.2 fl (7.4-10.4); Monocytes Absolute Auto 0.5 K/mm3 (0.1-0.6); Neutrophils Absolute Auto 3.9 K/mm3 (1.3-6.7); Neutrophils Percent Auto 55.6 % (45.5-73.1); Platelet Count Result 342 k/mm3 (150-375); Red Blood Count 4.08 M/mm3 (4.2-5.4)
[2020-06-10 22:26] LABS: Anion Gap 10 mmol/L (8-16); Blood Urea Nitrogen 10 mg/dL (7-17); Calcium 9.4 mg/dL (8.4-10.2); Carbon Dioxide 26 mmol/L (22-30); Chloride 105 mmol/L (98-107); Estimated CRCL calculation 90 ml/min; Estimated Glomerular Filt Rate > 60; Glucose 99 mg/dL (65-105); Potassium 3.4 mmol/L (3.4-5.0); Sodium 141 mmol/L (137-145)
--- NOTE | 2020-06-10 23:01 | ECG_ITS ---
Measurements Intervals [place] Rate: 87 P: 68 ID: [id number] QRS: 32 QRSD: 101 T: 37 QT: 413 QTc: 500 Interpretive Statements SINUS RHYTHM NORMAL ECG Electronically Signed On 06-11-2020 7:17:22 BANQUET SUPERVISOR by Onesimo Birch D.O.
[2020-06-10] MEDS: diphenhydrAMINE HCl INJ 50 MG/ML VIAL IV PUSH (23:04)
[2020-06-10] MEDS: KETOROLAC 30 MG/ML VIAL (*BKC) IV PUSH (23:07)
--- NOTE | 2020-06-10 23:07 | PC.NURSE ---
Patient states she began to have chest pain and feel short of breath after receiving IV contrast dye. EDP Lipsyer notified. Per EDP Lydia via verbal order read-back, give 50mg Benadryl IVP and get EKG on patient.
== END 2020-06-11 00:08 | disposition home or self-care (01) ==
PROVIDERS: Physician Assistant; Emergency Provider Emergency Medicine; PCP Obstetrics & Gynecology
DX: O90.2 Hematoma of obstetric wound (principal); J45.909 Unspecified asthma, uncomplicated
CPT/HCPCS: 36415; 74177; 80048; 81025; 85025; 93005; 96374; 96375; 99284; J1200; J1885; Q9967

== ENCOUNTER 2020-06-13 13:16 | Outpatient (CLI) | payer OTHER, SELFPAY ==
--- NOTE | ~2020-06-13 | US_ITS ---
EXAMINATION: US percutaneous drain w cath DATE: 06/13/2020 14:34 INDICATION: Seroma along a recent section surgical wound. TECHNIQUE: The procedure including the risks and benefits was discussed with the patient. Risks discu ssed included bleeding including bleeding and infection. Oral and written consent were obtained. The patient was confirmed to be receiving appropriate antibiotic coverage. The skin overlying the surgica l wound at the suprapubic anterior pelvic wall was prepped and draped in usual sterile fashion. Anes thetic was administered with 1% lidocaine subcutaneously. An 8.5 Fr catheter was inserted into the f luid collection and advanced under today's ultrasound observation to the contralateral right side of the fluid collection. The metal stiffener and trocar needle were removed, and the pigtail tip was loc ked. 20 mm of clear straw-colored fluid was aspirated and sent for culture. The catheter was stitched to the skin with suture. Antibiotic ointment and a sterile dressing were applied. The catheter was a ttached to suction drainage and was draining additional clear straw-colored fluid at the conclusion o f the procedure. There were no immediate complications. FINDINGS: On certified appliance service technician images there is an elongated loculated fluid collection extending the length of a transverse anterior pelvic wall section surgical wound which measures up to 4 cm in maximal orthogonal dimensions. The fluid collection is predominantly anechoic with multiple thin echogenic in ternal septations suggesting an evolving hematoma/seroma. Subsequent images demonstrate the catheter advanced from left to right across the fluid collection with the loop formed at the right side of the fluid collection. 20 mL of clear straw-colored fluid was aspirated and sent to the lab for Gram stai n and cultures. Final images show the formed pigtail catheter tip in the collection which is signifi cantly decreased in size post drain placement.. IMPRESSION: 1. Successful ultrasound-guided drain placement within a likely postoperative hematoma/seroma along t he anterior pelvic wall surgical wound. Reviewed, dictated and finalized at location A. S PLATER IMPRESSION: 1. Successful ultrasound-guided drain placement within a likely postoperative h ematoma/seroma along the anterior pelvic wall surgical wound.
== END 2020-06-13 13:17 | disposition home or self-care (01) ==
PROVIDERS: Visit Provider Obstetrics & Gynecology
DX: T88.8XXS Other specified complications of surgical and medical care, not elsewhere classified, sequela (principal)
CPT/HCPCS: 75989; 87070; 87075; 87076; 87205

== ENCOUNTER 2020-06-19 09:49 | Outpatient (CLI) | payer OTHER, SELFPAY ==
--- NOTE | ~2020-06-19 | US_ITS ---
EXAMINATION: US abdomen limited DATE: 06/19/2020 10:40 INDICATION: Subcutaneous seroma in anterior abdominal wall. TECHNIQUE: Multiple grayscale and Doppler ultrasound images of the abdomen were obtained. COMPARISON: Ultrasound 06/13/2020 FINDINGS: Subjacent to the section incision, there is a thick-walled loculated fluid collect ion with fluid component measuring 4.4 x 0.7 x 1.6 cm. The patient reports that the drain has not put out fluid for 4 days. I removed the drain and placed a bandage. IMPRESSION: 1. Subcutaneous postoperative fluid collection at the section incision with interval improve ment. I removed the drain after discussion with Dr. Gil. Reviewed, dictated and finalized at location A. [employer] MECH[employer]IC CONSTRUCTION IMPRESSION: 1. Subcutaneous postoperative fluid collection at the section incision with interval improvement. I removed the drain after discussion with Dr. Owen acevedo.
== END 2020-06-19 09:50 | disposition home or self-care (01) ==
PROVIDERS: PCP Obstetrics & Gynecology; Visit Provider Obstetrics & Gynecology
DX: T81.89XS Other complications of procedures, not elsewhere classified, sequela (principal)
CPT/HCPCS: 76705

== ENCOUNTER 2020-11-06 16:37 | Emergency (ER) | payer OTHER, SELFPAY ==
--- NOTE | ~2020-11-06 | CT_ITS ---
EXAMINATION: CT abdomen pelvis wo con DATE: 11/06/2020 20:54 INDICATION: Right lower quadrant pain. section 6 months prior. TECHNIQUE: Computed tomography (CT) of the abdomen and pelvis was performed without intravenous contr ast. The dose-length product was 331.88 mGy-cm. Automated exposure control and iterative reconstructi on technique were employed. COMPARISON: CT dated 06/10/2020 FINDINGS: Lung bases are unremarkable. Heart size normal. No significant pleural or pericardial effus ion. The liver, spleen, pancreas, adrenal glands and kidneys are unremarkable. Gallbladder is contracted. No free air or free fluid. Interval resolution of fluid collection lower anterior abdominal wall with residual postsurgical changes. Uterus is enlarged with prominent mass effect on the bladder superior ly. No acute osseous abnormality. Nonobstructive bowel gas pattern. No significant vascular abnormali ty. No lymphadenopathy. Normal appendix. IMPRESSION: 1. No acute abdominal abnormality. 2: Enlarged uterus. Reviewed, dictated and finalized at location A.
--- NOTE | ~2020-11-06 | US_ITS ---
EXAMINATION: US pelvic complete w TV DATE: 11/06/2020 23:08 INDICATION: Right pelvic pain Comparison:CT dated 11/06/2020 TECHNIQUE: Multiple transabdominal and endovaginal sonographic images of the pelvis performed. FINDINGS: The uterus measures 8.5 x 4.5 x 4.9 cm. Myometrium anteriorly in the lower uterine segment is heterogeneous which may be due to previous section scar. The endometrial complex measures 10 mm. The right ovary measures 3 x 2 x 3.2 cm and the left ovary measures 2.3 x 1.4 x 1.7 cm. There is a 1. 9 cm right ovarian cyst. There is no free fluid in the pelvis. There are no abnormal masses seen on either side. IMPRESSION: 1. Heterogeneous myometrium anteriorly lower uterine segment, likely related to previous sec tion scar. 2:, Right ovarian cyst measuring 1.9 cm. Reviewed, dictated and finalized at location A. IMPRESSION: 1. Heterogeneous myometrium anteriorly lower uterine segment, likely related to previous section scar. 2:, Right ovarian cyst measuring 1.9 cm.
[2020-11-06 17:30] VITALS: BP 125/79; PULSE 91; RESP 19; TEMP 36.4; O2SAT 97
[2020-11-06 17:47] LABS: Basophils Percent Auto 0.5 % (0.2-1.2); Eosinophils Absolute Auto 0.1 K/mm3 (0-0.3); Eosinophils Percent Auto 2.2 % (0-4.4); Hematocrit 38.9 % (37.0-47.0); Hemoglobin 12.8 g/dL (12.0-15.0); Immature Granulocyte Absolute 0.01 K/mm3 (0.00-0.031); Immature Granulocyte Percent A 0.2 % (0-0.5); Lymphocytes Absolute Auto 2.11 K/mm3 (0.9-3.2); Lymphocytes Percent Auto 36.2 % (18.3-44.2); Mean Corpuscular HGB Conc 32.9 g/dl (32-36); Mean Corpuscular Hemoglobin 30.5 pg (26-34); Mean Corpuscular Volume 92.6 fl (80-100); Monocytes Absolute Auto 0.4 K/mm3 (0.1-0.6); Monocytes Percent Auto 6.9 % (2.6-8.5); Neutrophils Absolute Auto 3.2 K/mm3 (1.3-6.7); Platelet Count Result 270 k/mm3 (150-375); Red Cell Distribution Width 12.3 % (11.5-14.5); White Blood Count 5.8 K/mm3 (4.5-10.0)
[2020-11-06 17:56] LABS: Add Urine Microscopic? NO; Alanine Aminotransferase 25 U/L (4-35); Albumin Level 4.2 g/dL (3.5-5.1); Alkaline Phosphatase 45 U/L (38-126); Anion Gap 7 mmol/L (8-16); Appearance Urine Clear (Clear); Aspartate Amino Transferase 27 U/L (14-36); Bilirubin Urine Negative (Negative); Bilirubin,Total 0.4 mg/dL (0.2-1.3); Blood Urea Nitrogen 8 mg/dL (7-17); Blood Urine Negative (Negative); Calcium 9.3 mg/dL (8.4-10.2); Carbon Dioxide 25 mmol/L (22-30); Chloride 107 mmol/L (98-107); Color Urine Straw (Yellow); Estimated CRCL calculation 78 ml/min; Estimated Glomerular Filt Rate > 60; Glucose 94 mg/dL (65-105); Glucose Urine UA Negative (Negative); Ketones Urine Negative (Negative); Leukocyte Esterase Ur Negative LEU/UL (Negative); Lipase 51 U/L (23-300); Nitrate Urine Negative (Negative); Potassium 3.7 mmol/L (3.4-5.0); Protein Urine Negative (Negative); Sodium 139 mmol/L (137-145); Specific Grav Ur 1.005 (1.001-1.035); Urobilinogen Urine Negative mg/dL (<2.0)
--- NOTE | 2020-11-06 20:33 | ED.ABDPAIN ---
HPI - Abdominal Pain General Chief Complaint: Abdominal Pain Stated Complaint: Incision Painful- X6 months Time Seen by Provider: 11/06/20 20:24 Source: patient Mode of arrival: ambulatory Limitations: no limitations History of Present Illness HPI narrative: THis is a 35 year old female who presents for evaluation of right lower abdominal pain. She states she has been dealing with intermittent pain located on right side of her c section since June. She states at that time she was found to have a seroma and it was drained. She states her pain became constant 3 weeks ago. She reports constant burning pain located at right lower abdomen that is nonradiating. She also reports she is feeling alot of pressure when she urinates. She also reports her vaginal discharge seems to more watery. She has been taking ibuprofen 800 mg without relief. She denies associated nausea, vomiting or fever. Her last menstrual cycle was 3 weeks ago. She is breast feeding Related Data Allergies Allergy/AdvReac Type Severity Reaction Status Date / Time iohexol Allergy Severe Chest Pain Verified 11/06/20 20:33 [From contrast - CT, X-RAY] Review of Systems Review of Systems: All systems reviewed & are unremarkable except as noted in HPI and below Constitutional: Constitutional: Denies chills and Denies fever(s) Gastrointestinal: Gastrointestinal: Reports abdominal pain, Denies diarrhea, Denies nausea and Denies vomiting Genitourinary: Genitourinary: Denies dysuria and Reports vaginal discharge PMFSH Past Medical History Medical History Asthma LEVON (generalized anxiety disorder) Heterozygous MTHFR mutation [id number] History of miscarriage HSV (herpes simplex virus) infection No significant past medical history Surgical History Surgical History Delivery by section History of section No significant past surgical history Family History Family History Mother Hypertension Social History Social History Smoking status: Never smoker Second hand tobacco smoke exposure: No Alcohol intake: never Substance use: never Substance use type: does not use Gender identity (if verbalized by the patient): Female Spiritual care concerns: No Agree to blood products: Yes Exam Const: General: no acute distress and alert Orientation/consciousness: patient oriented x3 Eyes: EOM: EOMs intact bilaterally Resp: Effort & Inspection: normal respiratory effort and no retractions Auscultation: clear to auscultation bilaterally Cardio: Rate: regular rate Rhythm: regular rhythm Heart sounds: no murmurs GI: GI Palp: Yes Soft to palpation, Yes Tenderness to palpation present (GI) and No Guarding due to palpation present (GI) Auscultation: bowels sounds not normal Skin: General skin exam: normal color Rashes: no rashes Neuro: General: patient oriented x3, moves all extremities and CN's II-XI intact bilaterally Psych: Mental Status: mental status grossly normal Affect: normal affect Course Consultations Consultation #1: I Discussed with Dr. Rojas patient's evaluation . Patient has been having pain for several weeks to months. She has right ovarian cyst but no other significant abnormalities. He states there is nothing acutely to be done tonight and patient needs to follow up with Dr. Gil for evaluation as outpatient. Date: 11/07/20 Time: 00:07 Vital Signs Vital signs: Vital Signs Temperature 97.5 F L 11/06/20 17:30 Pulse Rate 91 11/06/20 17:30 Respiratory Rate 19 11/06/20 17:30 Blood Pressure 125/79 11/06/20 17:30 Pulse Oximetry 97 11/06/20 17:30 Temperature 98.2 F 11/07/20 00:16 Pulse Rate 65 11/07/20 00:16 Respiratory Rate 18 11/07/20 00:
[2020-11-06 20:54] VITALS: BP 113/76; PULSE 87; RESP 16; O2SAT 98
--- NOTE | 2020-11-06 20:54 | PC.NURSE ---
Patient to radiology.
--- NOTE | 2020-11-06 21:41 | PC.NURSE ---
Patient states she does not wish to receive an IV. EDP Joshua notified. 30mg Toradol IM ordered.
[2020-11-06] MEDS: KETOROLAC 30 MG/ML VIAL (*BKC) IM (21:47)
[2020-11-06] MEDS: HYDROcodone/acetaminophen (*CRX) 5-325 MG TABLET 1 TAB PO (23:51)
[2020-11-06] MEDS: cefTRIAXone 1 GM VIAL 0.5 GM IM (23:56)
[2020-11-07] MEDS: LIDOCAINE HCL 1% LOCAL INJ 20 ML VIAL (00:05)
[2020-11-07 00:16] VITALS: BP 121/79; PULSE 65; RESP 18; TEMP 36.8; O2SAT 100
--- NOTE | 2020-11-07 00:17 | PC.NURSE ---
Pt presents to ED with complaints of abdominal pain for the past 3 weeks that has progressively worsened. Pt states she gave to her son approx 6months ago and has since been experiencing pain and discomfort at surgical site. Pt rates pain 8/10 at this time and is tearful. EDMD presented to bedside to update pt on poc and all questions and concerns addressed. Pt is now resting on cart in its lowest position with call button and personal items within reach. Pt advised to press call button for assistance. Vitals are stable and pt in no obvious distress at this time.
[2020-11-07 01:38] VITALS: BP 125/83; PULSE 65; RESP 18; TEMP 36.7; O2SAT 100
[2020-11-07 01:43] VITALS: BP 125/83; PULSE 65; RESP 18; TEMP 36.7; O2SAT 100
== END 2020-11-07 01:44 | disposition home or self-care (01) ==
PROVIDERS: Emergency Medicine; Emergency Provider General Practice; PCP Obstetrics & Gynecology
DX: N83.201 Unspecified ovarian cyst, right side (principal); J45.909 Unspecified asthma, uncomplicated; E72.12 Methylenetetrahydrofolate reductase deficiency; N85.2 Hypertrophy of uterus
CPT/HCPCS: 36415; 74176; 76830; 76856; 80053; 81003; 81025; 83690; 85025; 87070; 87491; 87591; 87808; 96372; 99284; A9270; J0696; J1885

== ENCOUNTER 2020-12-01 13:43 | Outpatient (CLI) | payer OTHER, SELFPAY ==
[2020-12-01 14:11] LABS: Basophils Percent Auto 0.8 % (0.2-1.2); Eosinophils Absolute Auto 0.2 K/mm3 (0-0.3); Eosinophils Percent Auto 4.3 % (0-4.4); Hematocrit 41.2 % (37.0-47.0); Hemoglobin 13.3 g/dL (12.0-15.0); Immature Granulocyte Absolute 0.01 K/mm3 (0.00-0.031); Immature Granulocyte Percent A 0.2 % (0-0.5); Lymphocytes Absolute Auto 1.96 K/mm3 (0.9-3.2); Lymphocytes Percent Auto 40.4 % (18.3-44.2); Mean Corpuscular HGB Conc 32.3 g/dl (32-36); Mean Corpuscular Hemoglobin 30.4 pg (26-34); Mean Corpuscular Volume 94.1 fl (80-100); Mean Platelet Volume 10.2 fl (7.4-10.4); Monocytes Absolute Auto 0.4 K/mm3 (0.1-0.6); Monocytes Percent Auto 7.4 % (2.6-8.5); Neutrophils Absolute Auto 2.3 K/mm3 (1.3-6.7); Neutrophils Percent Auto 46.9 % (45.5-73.1); Platelet Count Result 277 k/mm3 (150-375); Red Blood Count 4.38 M/mm3 (4.2-5.4); Red Cell Distribution Width 12.2 % (11.5-14.5); White Blood Count 4.9 K/mm3 (4.5-10.0)
== END 2020-12-01 13:44 | disposition home or self-care (01) ==
PROVIDERS: PCP Student in an Organized Health Care Education/Training Program; Visit Provider Student in an Organized Health Care Education/Training Program
DX: R19.7 Diarrhea, unspecified (principal); R30.0 Dysuria
CPT/HCPCS: 36415; 85025; 87324

== ENCOUNTER → 2021-02-23 01:49 | Outpatient (CLI) | payer OTHER, SELFPAY ==
[2021-02-23 19:29] LABS: SARS-CoV-2 RNA PCR Negative
== END ==
PROVIDERS: PCP Student in an Organized Health Care Education/Training Program; Visit Provider Student in an Organized Health Care Education/Training Program
DX: Z20.822 Contact with and (suspected) exposure to COVID-19 (principal)
CPT/HCPCS: C9803; U0003; U0005

== ENCOUNTER 2021-02-27 00:51 | Day surgery (SDC) | payer OTHER, SELFPAY ==
[2021-02-20 11:14] VITALS: BMI 23.8
[2021-02-27] VITALS (10 sets, daily range): BP systolic 94–111; BP diastolic 59–70; PULSE 43–65; RESP 11–16; TEMP 36.2–36.5; O2SAT 99–100; BMI 24.2
--- NOTE | 2021-02-27 08:13 | PM.IMHP ---
H&P: HPI History of Present Illness Date/Time: 02/27/21 08:13 Chief Complaint: Chronic post operative pelvic and abdominal pain Narrative: 35 yo who presents for pfennestiel incision scar revision. Pt initially presents with chronic abdominal and pelvic pain after repeat section performed in March 2020. Pt reports that her pain is so severe it has caused depression leading her to spend weeks at a time in bed in tears. She has tried multiple pain relief medications without improvement in symptoms. Pt pain symptoms suggestive of nerve entrapment or injury. Pt desires surgical exploration and revision of her scar. Review of Systems Cardiovascular: Cardiovascular: Denies chest pain, Denies leg edema, Denies palpitations, Denies dyspnea and Denies dyspnea on exertion Respiratory: Respiratory: Denies cough, Denies dyspnea and Denies dyspnea on exertion Gastrointestinal: Gastrointestinal: Denies abdominal pain, Denies constipation, Denies diarrhea, Denies nausea and Denies vomiting Genitourinary: Genitourinary: Denies hematuria, Denies urinary frequency, Denies dysuria, Denies pelvic pain, Denies urinary incontinence and Denies vaginal discharge Neurologic: Reports system reviewed and no additional complaints, except as documented Psychiatric: Psychiatric: Reports no additional psychiatric complaints Endocrine: Endocrine: Denies palpitations PMFSH Past Medical History Medical History Asthma LEVON (generalized anxiety disorder) Heterozygous MTHFR mutation [id number] History of miscarriage HSV (herpes simplex virus) infection No significant past medical history Surgical History Surgical History Delivery by section History of section Family History Family History Mother Hypertension Grandparent Cerebrovascular accident Other Diabetes mellitus Other Cancer Social History Social History Smoking status: Never smoker Second hand tobacco smoke exposure: No Alcohol intake: former Substance use: never Substance use type: does not use Living arrangements: with family Additional living arrangements comments: MOM AND CHILDREN Additional occupation/education comments: Stay at home mom Gender identity (if verbalized by the patient): Female Sexual Orientation (if Verbalized by the Patient): Straight or Heterosexual Spiritual care concerns: No Agree to blood products: Yes Meds Home Medications and Allergies Home Medications Medication Instructions Recorded Confirmed Type ibuprofen 600 mg PO Q6H PRN #14 tablet 11/07/20 02/20/21 Rx gabapentin 300 mg PO TID 02/20/21 02/20/21 History nitrofurantoin 100 mg PO Q12H 02/20/21 02/20/21 History oxycodone-acetaminophen 1 tablet PO Q6-8H 02/20/21 02/20/21 History sertraline 100 mg PO HS 02/20/21 02/20/21 History Allergies Allergy/AdvReac Type Severity Reaction Status Date / Time iohexol Allergy Severe Chest Pain Verified 02/20/21 11:07 [From contrast - CT, X-RAY] Exam Const: General: no acute distress Eyes: EOM: EOMs intact bilaterally Neck: Neck: supple Thyroid: thyroid normal Chest: Breast/axilla inspection: normal inspection of the breasts Breast/axilla palpation: normal palpation of the breasts, normal palpation of the axillae and no axillary lymphadenopathy Resp: Effort & Inspection: normal respiratory effort Auscultation: clear to auscultation bilaterally Cardio: Rate: regular rate Rhythm: regular rhythm GI: Inspection: non-distended and incision (pfannenstiel scar with keloid, tender to palpation, erythematous) GI Palp: Yes abdominal tenderness, Yes Soft to palpation, Yes Tenderness to palpation present (GI) and No Guarding due to palpation present (GI) Au
--- NOTE | 2021-02-27 08:20 | WPDHPUPDATE1 ---
History and Physical Update Update Date/Time: 02/27/21 08:20 History and Physical has been reviewed, including an updated exam of the patient. There are NO changes in the patient's condition. Risks, benefits, and alternatives have been discussed and questions answered. Patient agrees to proceed with procedure.
--- NOTE | 2021-02-27 11:25 | WPDANESEPPF ---
Anes - Initial Pre Proc Eval Procedure: Operation Date: 02/27/21 13:30 Proposed Procedures p Incisional Scar Revision and Exploration of Scar - Kiel Pineda MD Date/Time: 02/27/21 11:25 Surgeon: Kiel Pineda MD Pre Op Diagnosis: recurrent incisional pain Patient Data Age: 35 Gender: F Height: 1.57 m Weight: 58.97 kg Allergies Allergy/AdvReac Type Severity Reaction Status Date / Time iohexol Allergy Severe Chest Pain Verified 02/20/21 11:07 [From contrast - CT, X-RAY] Home Medications Medication Instructions Recorded Confirmed Type ibuprofen 600 mg PO Q6H PRN #14 tablet 11/07/20 02/20/21 Rx gabapentin 300 mg PO TID 02/20/21 02/20/21 History nitrofurantoin 100 mg PO Q12H 02/20/21 02/20/21 History oxycodone-acetaminophen 1 tablet PO Q6-8H 02/20/21 02/20/21 History sertraline 100 mg PO HS 02/20/21 02/20/21 History Patient hx anesthesia problems: none Family hx anesthesia problems: none PMFSH Past Medical History Medical History Asthma LEVON (generalized anxiety disorder) Heterozygous MTHFR mutation [id number] History of miscarriage HSV (herpes simplex virus) infection No significant past medical history Surgical History Surgical History Delivery by section History of section Family History Family History Mother Hypertension Grandparent Cerebrovascular accident Other Diabetes mellitus Other Cancer Social History Social History Smoking status: Never smoker Second hand tobacco smoke exposure: No Alcohol intake: former Substance use: never Substance use type: does not use Living arrangements: with family Additional living arrangements comments: MOM AND CHILDREN Additional occupation/education comments: Stay at home mom Gender identity (if verbalized by the patient): Female Sexual Orientation (if Verbalized by the Patient): Straight or Heterosexual Spiritual care concerns: No Agree to blood products: Yes Anes - Eval Final PreProcedure Day of Procedure 02/27/21 11:25 Patient weight: overweight Heart: regular rate and rhythm Lungs: clear to auscultation Airway: Mallampati scale class II Neurological: alert and oriented Last oral intake: >/= 8 hours ASA classification: II Emergent: no Anesthetic plan: proceed Anesthesia type and monitoring: general ETT and standard monitoring Informed Consent: The patient's anesthetic plan and its attendant risks and benefits were discussed with the patient/family/POA. Questions were solicited and answers provided to the satisfaction of the patient/family/POA.
[2021-02-27] MEDS: LACTATED RINGERS 1,000 ML 30 ML IV CONT (12:20)
--- NOTE | 2021-02-27 12:34 | SUR.PREOP ---
1234- Call to Dr. Guaman patient having severe pain to incisional scar and currently rating the pain 10/10 on numeric scale. Orders received to give patient 25MCG of fentanyl IVP once and can repeat dosing if needed for a maximum dosing of 50MCG fentanyl IVP.
[2021-02-27] MEDS: fentaNYL CITRATE INJ (*CRX) 100 MCG/2 ML VIAL 25 MCG IV PUSH ×2 (12:40→15:27)
[2021-02-27] MEDS: ceFAZolin 2 GM/D5W 50 ML 2 GM/50 ML BAG IVPB (13:19)
[2021-02-27] MEDS: KETOROLAC 30 MG/ML VIAL (*BKC) IV PUSH ×2 (13:40→16:05)
--- NOTE | 2021-02-27 14:34 | W.PM.PROC2 ---
Procedure Note - Detailed Date of Procedure 02/27/21 Pre-op Diagnosis recurrent incisional pain keloid scar Post-op Diagnosis same Procedure Performed Pfannenstiel incision revision incisional exploration Surgeon Kiel Pineda MD Anesthesia MAC Indications postoperative incision pain keloid incision pain Findings large keloid scar Description of Procedure The patient was taken to the operating room where MAC anesthesia was undertaken and found to be adequate. She was then prepped and draped in the supine position. A pre-operative team brief and a time out were completed. The previous Pfannenstiel incision scar was incised both superior and inferiorly. The keloid scar was removed with Bovie cautery. The incision was carried down to the level of the fascia. The fascia was palpated all along the right aspect and noted to be intact. There was no scar tissue or herniated tissue palpated. Local anesthetic of 1% lidocaine was introduced through the aponeurosis of the oblique muscles and the rectus muscles laterally. Approximately 20 mL of lidocaine was infiltrated throughout the area. The subcutaneous layer was re-approximated with 3-0 vicryl in a running fashion to close any space and reduce risk of seroma. The skin was re-approximated with 4-0 vicryl. The procedure had no immediate complications. Anesthesia was reversed. The patient was taken to the PACU. Estimated Blood Loss 25 Urine Output 50 Drains No Packing No Pathology none sent Complications No immediate complications Condition stable Disposition PACU
--- NOTE | 2021-02-27 14:50 | SUR.PHASEI ---
1445 - printed prescription placed in chart.
[2021-02-27] MEDS: oxyCODONE HCL (*CRX) 5 MG TAB IR PO (16:05)
[2021-02-27] MEDS: LIDOCAINE HCL 1% LOCAL INJ 20 ML VIAL 30 ML INFILTRATE (16:31)
== END 2021-02-27 16:48 | disposition home or self-care (01) ==
PROVIDERS: PCP Student in an Organized Health Care Education/Training Program; Visit Provider Student in an Organized Health Care Education/Training Program
PROC: 0UT94ZZ Resection of Uterus, Percutaneous Endoscopic Approach (ICD-10-PCS; CPT 13101; principal; 2021-02-27 13:30)
DX: L91.0 Hypertrophic scar (principal); G89.18 Other acute postprocedural pain; R10.31 Right lower quadrant pain; E72.12 Methylenetetrahydrofolate reductase deficiency; J45.909 Unspecified asthma, uncomplicated; F41.1 Generalized anxiety disorder; B00.9 Herpesviral infection, unspecified
CPT/HCPCS: 13101; 13102 ×3; A9270; J0690; J1885; J2250; J2270; J2405; J2704; J3010; J7120

== ENCOUNTER 2021-04-17 13:09 | Emergency (ER) | payer OTHER, SELFPAY ==
--- NOTE | 2021-04-17 14:30 | PC.NURSE ---
no answer when called from waiting room
== END 2021-04-17 15:35 | disposition left against medical advice (07) ==
PROVIDERS: PCP Student in an Organized Health Care Education/Training Program
DX: Z53.21 Procedure and treatment not carried out due to patient leaving prior to being seen by health care provider (principal)
CPT/HCPCS: 99199

== ENCOUNTER 2022-01-08 16:00 | Outpatient (RCR) | payer OTHER, SELFPAY ==
--- NOTE | 2021-10-10 17:52 | PTOPEVAL ---
PHYSICAL THERAPY EVALUATION AND PLAN OF CARE Thank you for referring Rosi Hernández to [facility].? The patient is scheduled to be seen for therapy? 2 -3x/month for 3months or until goals are met. Please review, sign, date and return this plan of care RAPHAEL. I agree with and certify that the following plan of care is medically necessary. Referring Physician Date Attending Provider: Kiel Pineda MD Evaluation Diagnosis pelvic floor pain Subjective Information in 2019. through the Query Text:As Reported By Patient/ and scar a nerve Family became entrapped, which she just learned about 8 months ago. States that she was leaking on herself because she was not able to get the bathroom on her in time. States that she is not able to hold her urine. States that she would have a strong feeling that she would have to urinate but only little would elimate or she would sit for a longer time waiting for the urine to come. pelvic pain: comes and goes. states that it feels right behind her incision. States there feels like there is a lot of tightness. insertional pain. States she feels like she cannot relax. States she has been getting steroid injections and for the last month she has been feeling better and has been able to stand better and get around better but she continues to rely on family to help her to safely go to the bathroom and get around and take care of herself. She uses a wheelchair to come into the clinic today. States she can stand about 4 minutes before needing to sit down. She feels like her legs are fatigued and heavy and there is pain in her knees. States that her will have to move her legs for her if she has them
--- NOTE | 2022-01-08 17:19 | PTOPEVAL ---
PHYSICAL THERAPY DISCHARGE NOTE Thank you for referring Rosi Hernández to [facility].? Please review, sign, date and return this plan of care RAPHAEL. I agree with and certify that the following plan of care is medically necessary. Referring Physician Date Attending Provider: Kiel Pineda MD Diagnosis pelvic floor pain Subjective Information in 2019. through the Query Text:As Reported By Patient/ and scar a nerve Family became entrapped, which she just learned about 10 months ago. after 3 months of participating in therapy she reports no changes in pain. She has injections to her abdomen a few days ago and she is in severe pain. continues to have significant depression and psychosocial complications that she recognizes but is having a difficult time coping and dealing with how to handle them in the midst of the pain. She also wants to stop taking her gabapentin but every time she tries to wean off, she experiences a severe emotional and psychological response so she feels stuck taking it even though it does not seem to help the pain. States that she does feel like she can stand a little bit longer and has more confidence in gait (continues to use a wheelchair to come into the clinic) but her pain remains unchanged. She reports continuing to have urinary frequency but significantly decreased urinary accidents. Self Report Pain Assessment Abdomen Reported Pain Level 8 Pain Description Throbbing,Tightness Pain Score Pain Score 8: Self Report Interventions Used Interventions Used By Clinicians Exercise,Manual Therapy Techniques Lower Extremity Range of Motion General Lower Extremity Range of Motion Reason Not Measured WFL/Left,WFL/Right,Pain Gross Lower Extremity Range of Motion right LE is WFL but painf
== END 2022-01-08 23:59 | disposition home or self-care (01) ==
LOC: ANHPT 16:00
PROVIDERS: PCP Student in an Organized Health Care Education/Training Program; Referring Provider Student in an Organized Health Care Education/Training Program; Visit Provider Student in an Organized Health Care Education/Training Program
DX: R10.2 Pelvic and perineal pain (principal)
CPT/HCPCS: 97110; 97112; 97140; 97162; 97530

== ENCOUNTER 2023-08-08 10:55 | Outpatient (CLI) | payer OTHER, SELFPAY ==
--- NOTE | ~2023-08-08 | MR_ITS ---
EXAMINATION: MR lumbar spine wo con DATE: 08/08/2023 12:41 INDICATION: low back pain travels down Rt. leg x6mo . TECHNIQUE: Magnetic resonance imaging (MRI) of the lumbar spine was performed without intravenous con trast. Sequences included sagittal T2-weighted FSE, sagittal T2-weighted FS FSE, sagittal T1-weighted FSE, and axial T2-weighted FSE. COMPARISON: CT abdomen pelvis 11/06/2020. FINDINGS: Hypoplastic/absent ribs at T12. Bilateral sacralization of L5. Rudimentary disc at L5-S1. T he last fully formed and hydrated disc is designated L4-5. The marrow signal is benign and homogenous . Conus terminates at T12-L1. Loss of disc hydration at L4-5. The following disc levels are specifica lly discussed: T11-T12: The disc does not extend beyond the endplate margin. There is no facet joint osteoarthritis. There is no neural foraminal stenosis. There is no central canal stenosis. T12-L1: The disc does not extend beyond the endplate margin. There is no facet joint osteoarthritis. There is no neural foraminal stenosis. There is no central canal stenosis. L1-L2: The disc does not extend beyond the endplate margin. There is no facet joint osteoarthritis. T here is no neural foraminal stenosis. There is no central canal stenosis. L2-L3: The disc does not extend beyond the endplate margin. There is no facet joint osteoarthritis. T here is no neural foraminal stenosis. There is no central canal stenosis. L3-L4: Mild diffuse bulge. There is mild facet joint osteoarthritis. There is no neural foraminal ange nosis. There is no central canal stenosis. L4-L5: Mild diffuse bulge. 4 mm central extrusion. Central disc rent. There is mild facet joint osteo arthritis. There is no neural foraminal stenosis. There is no central canal stenosis. L5-S1: The disc does not extend beyond the endplate margin. There is no facet joint osteoarthritis. T here is no neural foraminal stenosis. There is no central canal stenosis. IMPRESSION: Moderate degenerative disc disease at L4-5, with a 4 mm central extrusion. No severe central canal or neural foraminal narrowing. Apparent sacralization at L5 with a rudimentary disc at L5-S1. The last fully formed disc is designat ed L4-5 for the purposes of this examination. Reviewed, dictated and finalized at location K. [facility] RU[facility]ER IMPRESSION: Moderate degenerative disc disease at L4-5, with a 4 mm central extrusion. No severe central canal or neural foraminal narrowing. Apparent sacralization at L5 with a rudimentary disc at L5-S1. The last fully f ormed disc is designated L4-5 for the purposes of this examination.
== END 2023-08-08 10:56 | disposition home or self-care (01) ==
LOC: CHSIMG 10:56
PROVIDERS: PCP Physician Assistant; Visit Provider Physician Assistant
DX: M54.50 Low back pain, unspecified (principal); M51.36 Other intervertebral disc degeneration, lumbar region
CPT/HCPCS: 72148